=== PATIENT | male | born 1945 | race Caucasian/White ===

== ENCOUNTER 2017-01-25 18:58 | Emergency (ER) | payer MEDICARE ==
[~2017-01-25] VITALS: Ht 175.3 cm; Wt 60.0 kg
[2017-01-25 19:04] VITALS: BP 123/66
== END 2017-01-25 21:36 | disposition home or self-care (01) ==
LOC: ED 19:00
DX: Z00.00 Encounter for general adult medical examination without abnormal findings (principal); Z76.0 Encounter for issue of repeat prescription
CPT/HCPCS: 99283